=== PATIENT | female | born 1970 | race Hispanic/Latino ===

== ENCOUNTER 2019-06-11 13:53 | Inpatient (IN) | payer MEDICARE ==
[~2019-06-11] VITALS: Ht 154.9 cm; Wt 73.3 kg
[2019-06-11 14:45] VITALS: BP 161/93
[2019-06-11 15:09] LABS: BASOPHILS % (AUTO) 0.5 % (0.0-5.0); EOSINOPHILS % (AUTO) 0.5 % (0.0-8.0); LYMPHOCYTES % (AUTO) 32.8 % (21.0-51.0); MEAN CORPUSCULAR HEMOGLOBIN 27.6 pg (27.0-33.0); MEAN CORPUSCULAR HGB CONC 32.9 g/dL (32.0-36.0); MEAN CORPUSCULAR VOLUME 83.7 fL (79-99); MONOCYTES % (AUTO) 7.2 % (3.0-13.0); NEUTROPHILS % (AUTO) 58.5 % (40.0-77.0); PLATELET COUNT (AUTO) 340 K/uL (130-400); RED CELL DISTRIBUTION WIDTH 13.5 % (11.0-15.5); WHITE BLOOD COUNT (AUTO) 12.1 K/uL (4.8-10.8)
[2019-06-11] MEDS ORDERED: BELIMUMAB (15:11)
[2019-06-11] MEDS ORDERED: PANT40TA55 PO (15:11)
[2019-06-11] MEDS ORDERED: DIPH25CA85 PO (15:11)
[2019-06-11] MEDS ORDERED: RIVA20TA PO (15:11)
[2019-06-11] MEDS ORDERED: AMLO10TA4 PO (15:11)
[2019-06-11] MEDS ORDERED: HYDR8TAB2 PO (15:11)
[2019-06-11] MEDS ORDERED: INSU100V12 SQ (15:11)
[2019-06-11] MEDS ORDERED: MYCO500T PO (15:11)
[2019-06-11] MEDS ORDERED: LOSA50TA64 PO (15:11)
[2019-06-11] MEDS ORDERED: FURO40TA7 PO (15:11)
[2019-06-11] MEDS ORDERED: HYDR200T4 PO (15:11)
[2019-06-11] MEDS ORDERED: [UNRECOGNIZED DRUG - CODE] (15:11)
[2019-06-11] MEDS ORDERED: METO100T14 PO (15:11)
[2019-06-11 15:26] LABS: BILIRUBIN,TOTAL 0.2 mg/dL (0.2-1.0); CREATININE 0.8 mg/dL (0.5-1.5); POTASSIUM 3.6 mmol/L (3.5-5.1); TOTAL PROTEIN, SERUM 7.2 g/dL (6.0-8.3)
[2019-06-11] MEDS ORDERED: HYDROMORPHONE HCL 2 MG/ML VIAL IVP PRN (15:30)
[2019-06-11] MEDS ORDERED: DEXTROSE 50%-WATER 50 ML DISP.SYRIN IV PRN (15:30)
[2019-06-11] MEDS ORDERED: GLUCAGON 1MG KIT 1 MG ML IM PRN (15:30)
[2019-06-11] MEDS: METHYLPREDNISOLONE SOD SUCC 125MG/2ML VIAL IVP SCH ×2 (16:20→22:31)
[2019-06-11] MEDS: INSULIN R PO SS2 SQ SCH ×2 (16:21→20:59)
[2019-06-11] MEDS: SODIUM CHLORIDE 0.9% 1000ML 1,000 ML IV SCH (16:21)
--- NOTE | 2019-06-11 17:00 | NUR ---
NOTE CAME IN FROM DR CABA'S OFFICE WITH DX LUPUS FLARE UP. C/O SEVERE SWELLING AND PAIN TO HANDS AND FEET. REFER TO CHART FOR ORDERS. IVF STARTED PER ORDERS THROUGH PORTACATHETER THAT WAS ACCESSED IN M.D. OFFICE.
--- NOTE | 2019-06-11 19:30 | NUR ---
DR. MARCUS LYNN, STATED TO RESUME HER HOME MEDICATIONS
--- NOTE | 2019-06-11 19:32 | NUR ---
PT GIVEN 2 MG OF DILAUDID ORDERED, PT SCANNED AND MEDICATION SCAN 6 PT'S RIGHT OF MEDICATION ADMINISTRATION PERFORMED HOWEVER , COMPUTER SHUT OFF IN THE MIDDLE OF DOCUMENTATION AND DID NOT SAVE .
[2019-06-11] MEDS ORDERED: AMLODIPINE BESYLATE 5 MG TAB PO PRN (19:45)
[2019-06-11 20:00] VITALS: BP 139/81
[2019-06-11] MEDS ORDERED: PHARMACY COMMUNICATION MISC SCH (20:00)
--- NOTE | 2019-06-11 20:10 | NUR ---
AFTER RECEIVING PAIN MEDICATION PT STATED DEMEROL IV WORKS BETTER FOR HER AND SHE WANTS AN ORDER FOR IT I PAGED DR. CABA BUT HE DID NOT CALL BACK YET
[2019-06-11] MEDS: RIVAROXABAN 20 MG TABLET PO SCH (20:40)
[2019-06-11] MEDS: MYCOPHENOLATE MOFETIL 250 MG CAPSULE PO SCH (20:40)
[2019-06-11] MEDS: METOPROLOL TARTRATE 50 MG TAB PO SCH ×2 (20:40→20:42)
[2019-06-11] MEDS: HYDROMORPHONE 1 MG/1 ML AMP IVP PRN (22:30)
[2019-06-12] VITALS (8 sets, daily range): BP systolic 73–143; BP diastolic 38–86
[2019-06-12] MEDS: HYDROMORPHONE 1 MG/1 ML AMP IVP PRN ×4 (01:44→11:13)
[2019-06-12] MEDS: METHYLPREDNISOLONE SOD SUCC 125MG/2ML VIAL IVP SCH ×4 (04:33→19:54)
[2019-06-12] MEDS: INSULIN R PO SS2 SQ SCH ×4 (06:18→22:43)
[2019-06-12] MEDS ORDERED: DIPHENHYDRAMINE HCL 25 MG CAPSULE PO PRN (06:30)
[2019-06-12] MEDS: METOPROLOL TARTRATE 50 MG TAB PO SCH (07:51)
[2019-06-12] MEDS: PANTOPRAZOLE SODIUM 40 MG TABLET.DR PO SCH (07:51)
[2019-06-12] MEDS: MYCOPHENOLATE MOFETIL 250 MG CAPSULE PO SCH ×2 (07:51→19:56)
[2019-06-12] MEDS: HYDROXYCHLOROQUINE SULFATE 200 MG TAB PO SCH (07:51)
[2019-06-12] MEDS: LOSARTAN 50 MG TABLET PO SCH (07:51)
[2019-06-12] MEDS: FUROSEMIDE 40 MG TABLET PO SCH (07:52)
[2019-06-12] MEDS ORDERED: PANTOPRAZOLE SODIUM 40 MG TABLET.DR PO SCH (09:00)
[2019-06-12] MEDS: SODIUM CHLORIDE 0.9% 1000ML 1,000 ML IV SCH ×2 (09:03→22:36)
[2019-06-12] MEDS ORDERED: ONDANSETRON HCL 4 MG/2 ML VIAL ONE (12:26)
[2019-06-12] MEDS: MEPERIDINE-PF 50 MG/ML SYG IM PRN ×2 (13:34→19:53)
--- NOTE | 2019-06-12 17:45 | NUR ---
CM NOTE/IA MEET WITH PATIENT IN ROOM. STATES IS INDEPENDENT WITH ADLS, LIVES WITH SPOUSE, HAS WC, NO PROVIDER OR HH, AND FEELS SAFE TO RETURN HOME ONCE DISCHARGED FROM HOSPITAL. Addendum: 06/12/19 at 1746 by DAVE MCGRAW RN CM Amended: Links added.
[2019-06-12] MEDS: RIVAROXABAN 20 MG TABLET PO SCH (19:58)
[2019-06-12] MEDS: DiphenhydrAMINE HCL 50 MG/ML VIAL IV PRN (22:36)
[2019-06-13] MEDS: METHYLPREDNISOLONE SOD SUCC 125MG/2ML VIAL IVP SCH ×5 (02:30→23:51)
[2019-06-13] MEDS: MEPERIDINE-PF 50 MG/ML SYG IVP PRN ×4 (02:36→20:46)
[2019-06-13 03:40] VITALS: BP 131/74
[2019-06-13] MEDS: DiphenhydrAMINE HCL 50 MG/ML VIAL IV PRN ×4 (04:08→21:26)
[2019-06-13 04:39] LABS: BASOPHILS % (AUTO) 0.1 % (0.0-5.0); HEMATOCRIT 39.5 % (36-48); LYMPHOCYTES % (AUTO) 15.5 % (21.0-51.0); MEAN CORPUSCULAR HEMOGLOBIN 28.2 pg (27.0-33.0); MEAN CORPUSCULAR HGB CONC 33.7 g/dL (32.0-36.0); MEAN CORPUSCULAR VOLUME 83.9 fL (79-99); NEUTROPHILS % (AUTO) 80.5 % (40.0-77.0); PLATELET COUNT (AUTO) 353 K/uL (130-400); RED BLOOD CELL COUNT(AUTO) 4.71 MIL/uL (4.00-5.50); RED CELL DISTRIBUTION WIDTH 13.2 % (11.0-15.5)
[2019-06-13 05:07] LABS: POTASSIUM 3.9 mmol/L (3.5-5.1)
[2019-06-13] MEDS: PANTOPRAZOLE SODIUM 40 MG TABLET.DR PO SCH (07:05)
[2019-06-13] MEDS: INSULIN R PO SS2 SQ SCH ×4 (07:09→20:28)
[2019-06-13] MEDS: SODIUM CHLORIDE 0.9% 1000ML 1,000 ML IV SCH ×2 (07:30→17:22)
[2019-06-13] MEDS: HYDROXYCHLOROQUINE SULFATE 200 MG TAB PO SCH (08:34)
[2019-06-13] MEDS: MYCOPHENOLATE MOFETIL 250 MG CAPSULE PO SCH ×2 (08:34→20:44)
[2019-06-13] MEDS: FUROSEMIDE 40 MG TABLET PO SCH (08:34)
[2019-06-13] MEDS: ONDANSETRON HCL 4 MG/2 ML VIAL IVP PRN ×3 (08:35→20:44)
[2019-06-13 08:57] VITALS: BP 131/65
[2019-06-13] MEDS: LOSARTAN 50 MG TABLET PO SCH (09:33)
[2019-06-13 12:30] VITALS: BP 118/64
[2019-06-13 17:09] VITALS: BP 134/74
[2019-06-13 20:28] VITALS: BP 143/77
[2019-06-13] MEDS: RIVAROXABAN 20 MG TABLET PO SCH (20:44)
--- NOTE | 2019-06-13 22:26 | NUR ---
patient request not to give iv fluids for now. she claims that those iv fluids swell her up
[2019-06-13 23:58] VITALS: BP 116/58
[2019-06-14] MEDS: ONDANSETRON HCL 4 MG/2 ML VIAL IVP PRN (02:26)
[2019-06-14] MEDS: MEPERIDINE-PF 50 MG/ML SYG IVP PRN ×4 (02:27→22:40)
[2019-06-14] MEDS: DiphenhydrAMINE HCL 50 MG/ML VIAL IV PRN ×3 (03:26→20:51)
[2019-06-14] MEDS: SODIUM CHLORIDE 0.9% 1000ML 1,000 ML IV SCH ×3 (03:30→23:30)
[2019-06-14 04:07] VITALS: BP 128/79
[2019-06-14] MEDS: INSULIN R PO SS2 SQ SCH ×4 (05:53→21:04)
[2019-06-14] MEDS: METHYLPREDNISOLONE SOD SUCC 125MG/2ML VIAL IVP SCH ×3 (05:54→18:38)
[2019-06-14] MEDS: PANTOPRAZOLE SODIUM 40 MG TABLET.DR PO SCH (05:54)
[2019-06-14] MEDS: HYDROMORPHONE HCL 2 MG TAB PO PRN ×3 (05:55→18:39)
--- NOTE | 2019-06-14 07:30 | NUR ---
NOTE AAOX3.C/O SOME LEFT HIP AND LEFT ARM DISCOMFORT AT THIS TIME. CAME IN WITH LUPUS FLARE UP ON MONDAY. HAS BEEN RECEIVING PAIN MEDS PRN AND SHE RECEIVED HER HOME DOSE OF DILAUDID 8MG PO EARLIER THIS AM AND SHE IS ALREADY INQUIRING ABOUT PAIN MEDS DUE AT A CERTAIN TIME. I EXPLAINED TO HER THAT HER PAIN MEDICATIONS ARE NOT SCHEDULED AND SHE NEEDS TO JUST TELL ME WHEN SHE IS IN PAIN AND I WILL ASSESS HER AND SEE WHAT SHE CAN RECEIVE. SHE HAS SWELLING TO LEFT ARM AND SWELLING TO BLE HAS GONE AWAY AND SO DOES THE RIGHT ARM AND HAND SWELLING.
[2019-06-14 08:00] VITALS: BP 143/72
[2019-06-14] MEDS: HYDROXYCHLOROQUINE SULFATE 200 MG TAB PO SCH (08:43)
[2019-06-14] MEDS: MYCOPHENOLATE MOFETIL 250 MG CAPSULE PO SCH ×2 (08:44→20:52)
[2019-06-14] MEDS: FUROSEMIDE 40 MG TABLET PO SCH (08:44)
[2019-06-14] MEDS: LOSARTAN 50 MG TABLET PO SCH (08:46)
[2019-06-14 11:44] VITALS: BP 125/63
[2019-06-14] MEDS ORDERED: LACTULOSE 20 GM/30 ML UDCUP ONE (12:03)
[2019-06-14 16:00] VITALS: BP 132/75
[2019-06-14 19:56] VITALS: BP 131/83
[2019-06-14] MEDS: LACTULOSE 20 GM/30 ML UDCUP PO PRN (20:51)
[2019-06-14] MEDS: RIVAROXABAN 20 MG TABLET PO SCH (20:52)
--- NOTE | 2019-06-14 21:08 | NUR ---
Re: BS 408 Pt BS elevated at this time as pt on Solu Medrol & stated had a sandwich tray at 1900 as only this time that she is getting back her appetite. Per pt stated she is usually place on SS 2 once in the hospital. I made her aware I will notify of this issue. For now covered with SS1 as ordered & will continue to monitor.
[2019-06-14 23:25] VITALS: BP 158/88
[2019-06-15] MEDS: METHYLPREDNISOLONE SOD SUCC 125MG/2ML VIAL IVP SCH ×4 (00:58→18:34)
[2019-06-15] MEDS: HYDROMORPHONE HCL 2 MG TAB PO PRN ×4 (01:19→19:51)
[2019-06-15 02:50] VITALS: BP 139/78
[2019-06-15] MEDS: DiphenhydrAMINE HCL 50 MG/ML VIAL IV PRN ×4 (03:37→22:48)
[2019-06-15] MEDS: MEPERIDINE-PF 50 MG/ML SYG IVP PRN ×4 (04:51→22:48)
[2019-06-15] MEDS: PANTOPRAZOLE SODIUM 40 MG TABLET.DR PO SCH (06:21)
[2019-06-15] MEDS: INSULIN HUMULIN R 100 UNIT/ML 3ML SQ SCH ×4 (06:22→20:36)
[2019-06-15] MEDS: LACTULOSE 20 GM/30 ML UDCUP PO PRN ×4 (06:52→19:50)
--- NOTE | 2019-06-15 07:00 | NUR ---
Re: Rounds in,seen & inform the pt plan for d/c tomorrow, pt in agreement.
[2019-06-15 08:00] VITALS: BP 133/84
[2019-06-15] MEDS: ONDANSETRON HCL 4 MG/2 ML VIAL IVP PRN (08:25)
--- NOTE | 2019-06-15 08:35 | NUR ---
REPORTS ABDOMINAL PAIN PATIENT REPORTS SEVERE ABDOMINAL PAIN 10/10 AND NAUSEA. AUSCULTATED HYPOACTIVE BOWEL SOUNDS. ADMINISTERED PRN ZOFRAN. INSTRUCTED PATIENT TO REST IN BED OR ASK FOR ASSISTANCE UNTIL SYMPTOM CONTROL. CALLED DR. CABA TO REPORT PATIENT SYMPTOMS.
[2019-06-15] MEDS: SODIUM CHLORIDE 0.9% 1000ML 1,000 ML IV SCH ×2 (09:30→19:30)
[2019-06-15] MEDS: LOSARTAN 50 MG TABLET PO SCH (10:34)
[2019-06-15] MEDS: HYDROXYCHLOROQUINE SULFATE 200 MG TAB PO SCH (10:34)
[2019-06-15] MEDS: MYCOPHENOLATE MOFETIL 250 MG CAPSULE PO SCH ×2 (10:34→19:50)
[2019-06-15] MEDS: FUROSEMIDE 40 MG TABLET PO SCH (10:35)
[2019-06-15 11:34] VITALS: BP 137/78
[2019-06-15 16:00] VITALS: BP 129/78
--- NOTE | 2019-06-15 17:00 | NUR ---
FLEET ENEMA ADMINISTERED
[2019-06-15 19:00] VITALS: BP 121/67
[2019-06-15] MEDS: RIVAROXABAN 20 MG TABLET PO SCH (19:50)
[2019-06-15 23:00] VITALS: BP 153/83
[2019-06-16] MEDS: LACTULOSE 20 GM/30 ML UDCUP PO PRN ×3 (00:12→11:46)
[2019-06-16] MEDS: METHYLPREDNISOLONE SOD SUCC 125MG/2ML VIAL IVP SCH ×5 (00:12→23:39)
[2019-06-16 03:00] VITALS: BP 139/85
[2019-06-16] MEDS: DiphenhydrAMINE HCL 50 MG/ML VIAL IV PRN ×3 (04:49→21:20)
[2019-06-16] MEDS: MEPERIDINE-PF 50 MG/ML SYG IVP PRN ×4 (04:52→23:09)
[2019-06-16] MEDS: SODIUM CHLORIDE 0.9% 1000ML 1,000 ML IV SCH ×2 (05:30→15:30)
[2019-06-16] MEDS: INSULIN HUMULIN R 100 UNIT/ML 3ML SQ SCH ×4 (06:24→21:05)
[2019-06-16] MEDS: PANTOPRAZOLE SODIUM 40 MG TABLET.DR PO SCH (07:14)
[2019-06-16] MEDS: HYDROMORPHONE HCL 2 MG TAB PO PRN ×2 (07:14→14:17)
[2019-06-16] MEDS ORDERED: MAGNESIUM CITRATE 296 ML SOLUTION PO PRN (07:15)
[2019-06-16 07:41] LABS: HEMATOCRIT 41.3 % (36-48); MEAN CORPUSCULAR HEMOGLOBIN 27.5 pg (27.0-33.0); MEAN CORPUSCULAR HGB CONC 33.4 g/dL (32.0-36.0); MEAN CORPUSCULAR VOLUME 82.3 fL (79-99); PLATELET COUNT (AUTO) 325 K/uL (130-400); RED BLOOD CELL COUNT(AUTO) 5.02 MIL/uL (4.00-5.50); WHITE BLOOD COUNT (AUTO) 10.6 K/uL (4.8-10.8)
[2019-06-16 08:09] VITALS: BP 123/61
[2019-06-16] MEDS: HYDROXYCHLOROQUINE SULFATE 200 MG TAB PO SCH (08:48)
[2019-06-16] MEDS: LOSARTAN 50 MG TABLET PO SCH (08:48)
[2019-06-16] MEDS: MYCOPHENOLATE MOFETIL 250 MG CAPSULE PO SCH ×2 (08:49→21:02)
[2019-06-16] MEDS: FUROSEMIDE 40 MG TABLET PO SCH (08:49)
[2019-06-16 09:43] LABS: LYMPHOCYTES % (MANUAL) 9 % (22-44); MONOCYTES % (MANUAL) 5 % (2-9); PLATELET MORPHOLOGY COMMENT ADEQUATE; SEGMENTED NEUTROPHILS % 86 % (40-70)
[2019-06-16 11:59] VITALS: BP 135/82
[2019-06-16 16:41] VITALS: BP 120/75
[2019-06-16] MEDS: ONDANSETRON HCL 4 MG/2 ML VIAL IVP PRN (17:03)
--- NOTE | 2019-06-16 17:30 | NUR ---
FLEET ENEMA ADMINISTERED
[2019-06-16 20:03] VITALS: BP 122/65
[2019-06-16] MEDS: RIVAROXABAN 20 MG TABLET PO SCH (21:01)
[2019-06-16 23:43] VITALS: BP 138/67
[2019-06-17] MEDS: SODIUM CHLORIDE 0.9% 1000ML 1,000 ML IV SCH (01:30)
[2019-06-17] MEDS: HYDROMORPHONE HCL 2 MG TAB PO PRN ×2 (03:22→09:29)
[2019-06-17 03:36] VITALS: BP 134/82
[2019-06-17] MEDS: METHYLPREDNISOLONE SOD SUCC 125MG/2ML VIAL IVP SCH ×3 (05:43→18:11)
[2019-06-17] MEDS: MEPERIDINE-PF 50 MG/ML SYG IVP PRN ×3 (05:44→18:12)
[2019-06-17] MEDS: INSULIN HUMULIN R 100 UNIT/ML 3ML SQ SCH ×3 (06:02→17:04)
[2019-06-17] MEDS: PANTOPRAZOLE SODIUM 40 MG TABLET.DR PO SCH (07:36)
[2019-06-17] MEDS: FUROSEMIDE 40 MG TABLET PO SCH (07:43)
[2019-06-17] MEDS: HYDROXYCHLOROQUINE SULFATE 200 MG TAB PO SCH (07:43)
[2019-06-17] MEDS: MYCOPHENOLATE MOFETIL 250 MG CAPSULE PO SCH (07:43)
[2019-06-17] MEDS: LOSARTAN 50 MG TABLET PO SCH (07:44)
[2019-06-17 08:00] VITALS: BP 127/77
[2019-06-17 11:00] VITALS: BP 116/59
[2019-06-17] MEDS: ONDANSETRON HCL 4 MG/2 ML VIAL IVP PRN ×2 (12:22→18:12)
[2019-06-17 15:30] VITALS: BP 137/87
--- NOTE | 2019-06-17 15:51 | NUR ---
CHART REVIEWED. NOTED THAT NOTES SAYS DC TO HOME... NO ORDER FOR DC NOTED. NOTE MADE OF HIGH SUGAR, CONTINUED SOLUMEDROL. DECREASING PAIN Addendum: 06/17/19 at 1552 by CYRIL RAMSAY RN CM Amended: Links added.
--- NOTE | 2019-06-17 16:56 | NUR ---
Nutrition Intervention: Nutrition screen based on LOS x 6 days. Pt. on 75gm CCD diet with fair p.o. intake, as per pt. Labs reviewed(Alb 4.0, BG 432). Pt. reports BG is elevated due to medication solu medrol. Pt. reports BG levels are usually well controlled and HgA1c is ~7.0%. SR-20, edematous. LBM: 06/17/2019, per pt. BMI: 30.5, Obesity Grade 1. Pt. reports has been educated in the past on DM diet and declined nut. education at this time. Recommendations: 1) Rec. 2gm Na 60gm CCD diet for better BG control. 2) Continue to monitor pt's nutritional status. 3) Consult RD as nutrition concerns arise. Addendum: 06/17/19 at [address] Amended: Links added.
[2019-06-17] MEDS: DiphenhydrAMINE HCL 50 MG/ML VIAL IV PRN (18:23)
[2019-06-17] MEDS ORDERED: HEPARIN SODIUM/PF 100UNIT/ML 5ML SYRINGE IV SCH (18:30)
--- NOTE | 2019-06-17 19:05 | NUR ---
PORT-CATH REMOVAL PORT-A-CATH WAS FLUSHED WITH 300 UNITS OF HEPARIN, PER PROTOCOL, AND REMOVED. SITE WAS COVERED WITH GAUZE AND COVERED WITH TEGADERM.
--- NOTE | 2019-06-17 19:05 | NUR ---
DISCHARGE PATIENT GIVEN DISCHARGE INSTRUCTIONS VIA TEACH BACK. PORT-A-CATH DE-ACCESSED BY JET GRAY. PATIENT TO FOLLOW UP WITH DR. CABA IN 1 WEEK AND CONTINUE HOME MEDICATIONS ORDERED. PATIENT STABLE AT THIS TIME. PATIENT WHEELED TO [facility].
== END 2019-06-17 19:15 | disposition home or self-care (01) | DRG 546 ==
LOC: EDH 13:53 → 3AH 14:38
PROVIDERS: ADMIT Internal Medicine Hematology & Oncology; ATTEND Internal Medicine Hematology & Oncology
DX: M32.9 Systemic lupus erythematosus, unspecified (principal); D68.61 Antiphospholipid syndrome; I11.9 Hypertensive heart disease without heart failure; R53.1 Weakness; R26.2 Difficulty in walking, not elsewhere classified; E11.9 Type 2 diabetes mellitus without complications; I48.91 Unspecified atrial fibrillation; I49.5 Sick sinus syndrome; K59.00 Constipation, unspecified; Z86.711 Personal history of pulmonary embolism; Z90.49 Acquired absence of other specified parts of digestive tract; Z90.710 Acquired absence of both cervix and uterus; Z88.6 Allergy status to analgesic agent; Z88.5 Allergy status to narcotic agent; Z88.8 Allergy status to other drugs, medicaments and biological substances
CPT/HCPCS: 36415; 74176; 80048; 80053; 82948; 85025; 97039; G0378; J1170; J1200; J1642; J1815; J2175; J2405; J2930; J7030; J7517; Q0163